=== PATIENT | male | born 1935 | race Caucasian/White ===

== ENCOUNTER → 2017-03-05 14:36 | Outpatient (CLI) | payer MEDICARE, BC, SELFPAY ==
[2017-03-05 16:19] LABS: Prostate Specific Ag Screen 1.2 ng/mL (0.0-4.0)
== END ==
PROVIDERS: PCP Urology; Visit Provider Urology
DX: R97.20 Elevated prostate specific antigen [PSA] (principal); Z12.5 Encounter for screening for malignant neoplasm of prostate
CPT/HCPCS: 36415; G0103

== ENCOUNTER → 2017-04-09 10:58 | Outpatient (CLI) | payer MEDICARE, BC, SELFPAY ==
--- NOTE | 2017-04-09 | XR_ITS ---
XR ribs LT min 3V w CXR1V HISTORY: ITS.REASON: LEFT POSTERIOR RIB PAIN ORDERING PHYSICIAN: Wilfred Chavez MD PATIENT AGE: 81 years COMPARISON: 05/24/2011 FINDINGS: A frontal view of the chest shows no acute finding. Multiple views of the Left ribs were obtained. Nondisplaced fracture involving the left 10th rib anteriorly. There is an old fracture of the left fourth through sixth ribs anteriorly. IMPRESSION: 1. Acute nondisplaced left 10th rib fracture. 2. Old left rib fractures
== END ==
PROVIDERS: PCP Family Medicine; Visit Provider Family Medicine
DX: R07.81 Pleurodynia (principal)
CPT/HCPCS: 71101

== ENCOUNTER → 2017-12-12 14:02 | Outpatient (CLI) | payer MEDICARE, BC, SELFPAY ==
[2017-12-12 15:11] LABS: Basophils % 0.6 % (0.1-2.0); Eosinophils # 0.2 K/mm3 (0.0-0.4); Hematocrit 50.4 % (42.0-52.0); Hemoglobin 16.4 g/dL (14.1-18.0); Lymphocytes # 2.4 K/mm3 (0.7-4.5); Lymphocytes % 36.8 K/mm3 (10-50); Mean Corpuscular HGB Conc 32.5 g/dL (31.8-35.4); Mean Corpuscular Hemoglobin 31.8 pg (27.0-31.2); Mean Corpuscular Volume 97.9 fl (80-94); Mean Platelet Volume 7.6 fl (7.4-10.4); Monocytes # 0.7 K/mm3 (0.1-1.0); Monocytes % 10.7 % (1.7-9.3); Neutrophils # 3.2 K/mm3 (1.8-7.8); Neutrophils % 48.9 % (37.0-80.0); Platelet Count 218 K/mm3 (142-424); Red Blood Count 5.15 M/mm3 (4.60-6.20); Red Cell Distribution Width 13.2 % (11.5-17.5); White Blood Count 6.5 K/mm3 (4.8-10.8)
[2017-12-12 15:18] LABS: Anion Gap 9.5 mEq/L (5-15); Blood Urea Nitrogen 21 mg/dL (7-18); Carbon Dioxide 29 mmol/L (21.0-32.0); Chloride 105 mmol/L (98-107); Creatinine,Serum 1.45 mg/dL (0.70-1.30); Estimated Glomerular Filt Rate 47 ml/min (>60); GFR (African American) 57 ML/MIN (>60); Glucose 85 mg/dL (74-106); Potassium 4.5 mmoL/L (3.5-5.1); Sodium 139 mmol/L (136-145)
[2017-12-12 15:46] LABS: INR 0.95 (0.9-1.1); Prothrombin Time 9.8 seconds (9.4-11.8)
== END ==
PROVIDERS: PCP Family Medicine; Visit Provider Otolaryngology
DX: Z01.818 Encounter for other preprocedural examination (principal); Z51.81 Encounter for therapeutic drug level monitoring
CPT/HCPCS: 36415; 80048; 85025; 85610

== ENCOUNTER → 2018-04-10 09:54 | Outpatient (CLI) | payer MEDICARE, BC, SELFPAY ==
[2018-04-10 11:28] LABS: Alanine Aminotransferase 37 U/L (12-78); Albumin Level 3.4 gm/dL (3.4-5.0); Albumin/Globulin Ratio 0.9 (1.1-1.8); Alkaline Phosphatase 97 U/L (46-116); Anion Gap 13.2 mEq/L (5-15); Aspartate Amino Transferase 24 U/L (15-37); Bilirubin,Total 0.8 mg/dL (0.2-1.0); Blood Urea Nitrogen 23 mg/dL (7-18); Calcium 9.1 mg/dL (8.5-10.1); Carbon Dioxide 27 mmol/L (21.0-32.0); Chloride 104 mmol/L (98-107); Chol/HDL Ratio 4.1 (1-3.5); Cholesterol 172 mg/dL (140-200); Creatinine,Serum 1.72 mg/dL (0.70-1.30); Estimated Glomerular Filt Rate 38 ml/min (>60); GFR (African American) 47 ML/MIN (>60); Globulin 3.6 gm/dl (1.3-3.2); Glucose 92 mg/dL (74-106); HDL Cholesterol 42 mg/dL (27-67); LDL Cholesterol 106 mg/dL (0-130); Potassium 4.2 mmoL/L (3.5-5.1); Sodium 140 mmol/L (136-145); Triglycerides 120 mg/dL (30-200); VLDL Cholesterol 24 mg/dL (0-40)
== END ==
PROVIDERS: Visit Provider Family Medicine
DX: E78.5 Hyperlipidemia, unspecified (principal); I10 Essential (primary) hypertension
CPT/HCPCS: 36415; 80053; 80061

== ENCOUNTER → 2018-12-08 13:49 | Outpatient (CLI) | payer MEDICARE, BC, SELFPAY ==
--- NOTE | 2018-12-08 13:57 | XR_ITS ---
PROCEDURE: XR LUMBAR SPINE MIN 4V CLINICAL INDICATION: LOW BACK PAIN Recent injury with low back pain COMPARISON: No exams were available for comparison FINDINGS: There is mild wedging of L1 with loss of height anteriorly of approximately 15-20 percent. No obvious retropulsion. There is also minimal loss of height anteriorly of L3 and L4 age indeterminate. There is normal alignment. Mild degenerative disc disease with minimal endplate hypertrophic changes are present at L1-L2 and L3-L4. There is mild amount of retained colonic feces. Vascular calcification noted likely of the left renal artery IMPRESSION: Mild wedging of, L1, L3, and L4 age indeterminate. Consider CT or MRI for further evaluation. Dictated by: Praveen Escalera MD 12/08/2018 15:01 Electronically signed by Praveen Escalera MD in [place] 12/08/2018 15:01
== END ==
PROVIDERS: PCP Family Medicine; Visit Provider Family Medicine
DX: M54.5 Low back pain (principal)
CPT/HCPCS: 72110

== ENCOUNTER → 2018-12-22 15:03 | Outpatient (CLI) | payer MEDICARE, BC, SELFPAY ==
--- NOTE | 2018-12-22 15:10 | CT_ITS ---
PROCEDURE: CT THORACIC SPINE WO CON CLINICAL HISTORY: ACUTE MIDLINE THORACIC PAIN COMPARISON: XR LUMBAR SPINE MIN 4V from 12/08/2018 TECHNIQUE: Axial images obtained with sagittal and coronal reformats. All CT scans at the facility use one or more dose reduction, viz: automated exposure control, ma/kV adjustment per patient size (including targeted exams where dose is matched to indication, i.e. head), or iterative reconstruction technique. FINDINGS: There is normal alignment. There is mild wedging involving the T10 vertebral body with loss of height anteriorly of approximately 10 percent. There is slight increased soft tissue density anteriorly at the T9-T10 level. There is slight wedging also of the T1 vertebral body anteriorly with osteophyte at the anterior superior aspect of T1 suggesting that this is old. No lytic or blastic changes are evident. There is mild multilevel degenerative disc disease. An additional nodule projects off the lateral aspect of the right kidney at 13 mm. Atelectatic changes are present in the lung bases. Incidental note is made of a 5.2 by 4 cm left renal cyst. Nonobstructing 3 mm stone is present in the lower pole of the right kidney. There is a hyperdense nodule projecting off the lower pole of the right kidney posteriorly measuring 18 mm. This is indeterminate. Incidental note made coronary artery calcifications and aortic valvular calcifications. IMPRESSION: 1. Mild wedging of the T10 vertebral body which may be acute without obvious retropulsion. 2. Mild wedging of T1 which may be old. 3. Multilevel degenerative changes. 4. Indeterminate right renal nodules. Suggest ultrasound initially for further evaluation to determine cystic or solid nature. There is a 5 cm left renal cyst. Dictated by: Praveen Escalera MD 12/23/2018 15:10 Electronically signed by Praveen Escalera MD in [place] 12/23/2018 15:10
--- NOTE | 2018-12-22 15:10 | CT_ITS ---
PROCEDURE: CT LUMBAR SPINE WO CON CLINICAL HISTORY: LBP Low back pain, fall with injury and pain COMPARISON: XR LUMBAR SPINE MIN 4V from 12/08/2018 CT THORACIC SPINE WO CON from 12/22/2018 TECHNIQUE: Axial images obtained with sagittal and coronal reformats. All CT scans at the facility use one or more dose reduction, viz: automated exposure control, ma/kV adjustment per patient size (including targeted exams where dose is matched to indication, i.e. head), or iterative reconstruction technique. FINDINGS: There is normal alignment. There is mild acute wedging of L1 with loss of height anteriorly of approximately 20 percent without retropulsion. L1-L2 has an unremarkable appearance. L2-L3: Mild bulging disc. There is a minimal acute wedge compression changes involving the superior endplate of L3 with loss of height of less than 10 percent. No retropulsion. L3-L4: Mild concentric bulging disc. There is minimal acute wedge compression changes involving the superior and central endplate of L4 with loss of height centrally of approximately 15 percent. No retropulsion. L4-5: Bulging disc. Mild bilateral foraminal narrowing L5-S1: Bulging disc with facet hypertrophic change and mild bilateral foraminal narrowing There is an and indeterminate nodule projecting off the posterior aspect of the right kidney at 1.8 cm as well as the lateral aspect of the right kidney at 1.2 cm. There may be a 1.6 cm hyperdense nodule of the left kidney. Further evaluation with ultrasound suggested. There are multiple left renal cysts the largest at 5 cm. IMPRESSION: 1. Acute mild wedge compression changes of L1, L3, and L4 as detailed above. No retropulsion. 2. Bulging disc with lumbar spondylosis as detailed above. 3. Indeterminate bilateral a renal nodules for which ultrasound is suggested for further evaluation. Dictated by: Praveen Escalera MD 12/23/2018 15:17 Electronically signed by Praveen Escalera MD in [place] 12/23/2018 15:17
== END ==
PROVIDERS: PCP Family Medicine; Visit Provider Family Medicine
DX: M54.5 Low back pain (principal); M54.6 Pain in thoracic spine
CPT/HCPCS: 72128; 72131

== ENCOUNTER → 2020-01-15 16:00 | Outpatient (CLI) | payer MEDICARE, BC, SELFPAY | PROVIDERS: Visit Provider Urology | DX: R82.81 Pyuria (principal) | CPT/HCPCS: 87086; 87088; 87186 ==

== ENCOUNTER → 2021-01-16 16:29 | Outpatient (CLI) | payer MEDICARE, BC, SELFPAY | PROVIDERS: Visit Provider Urology | DX: N39.0 Urinary tract infection, site not specified (principal); B96.1 Klebsiella pneumoniae [K. pneumoniae] as the cause of diseases classified elsewhere | CPT/HCPCS: 87086; 87088; 87186 ==

== ENCOUNTER 2021-08-08 17:16 | Outpatient (CLI) | payer MEDICARE, BC, SELFPAY ==
[2021-08-08 18:10] LABS: Microscopic,Cath URINE MICROSCOPIC (MICROSCOPIC)
[2021-08-08 18:17] LABS: Appearance,Urine/Cath CLEAR (Clear); Bilirubin,Cath Negative (Negative); Blood, Urine/Cath Negative (Negative); Color,Urine/Cath YELLOW (Yellow); Glucose,Urine/Cath (UA) Negative (Negative); Ketones,Urine/Cath Negative (Negative); Leukocyte Esterase,Cath Negative (Negative); Nitrate,Cath Negative (Negative); Protein,Urine/Cath Negative (Negative); Specific Gravity, Urine/Cath 1.015 (1.005-1.030); Urobilinogen,Cath 0.2 EU/dl (0.2)
== END 2021-08-08 18:24 | disposition home or self-care (01) ==
PROVIDERS: PCP Family Medicine; Visit Provider Family Medicine
DX: Z46.6 Encounter for fitting and adjustment of urinary device (principal)
CPT/HCPCS: 81001; G0463

== ENCOUNTER 2021-08-08 22:55 | Inpatient (IN) | payer MEDICARE, BC, SELFPAY ==
[2021-08-08 22:57] VITALS: BP 132/73; PULSE 70; RESP 18; TEMP 37.2; O2SAT 98; BMI 25.0
[2021-08-09] VITALS (10 sets, daily range): BP systolic 118–151; BP diastolic 62–79; PULSE 55–75; RESP 16–20; TEMP 36.4–36.9; O2SAT 92–99; BMI 24.5
--- NOTE | 2021-08-09 | XR_ITS ---
PROCEDURE INFORMATION: Exam: XR Pelvis Exam date and time: 08/09/2021 12:14 AM Age: 86 years old Clinical indication: Injury or trauma; Fall; Blunt trauma (contusions or hematomas); Does not apply; Pelvic region TECHNIQUE: Imaging protocol: XR pelvis. Views: 1 or 2 view. COMPARISON: CT LUMBAR SPINE WO CON 12/22/2018 3:25 PM FINDINGS: Bones/joints: There is no evidence of disruption of the pelvic ring. There is mild bilateral hip arthropathy, unchanged from prior CT topogram in 2019. Minimal sacroiliac degenerative change noted. Mild lower lumbar degenerative disc disease. Soft tissues: Unremarkable. IMPRESSION: No acute abnormality identified.
--- NOTE | 2021-08-09 | XR_ITS ---
PROCEDURE INFORMATION: Exam: XR Chest Exam date and time: 08/09/2021 12:06 AM Age: 86 years old Clinical indication: Pain and injury or trauma; Fall; Blunt trauma (contusions or hematomas); Sternal or substernal pain; Additional info: Chest pain TECHNIQUE: Imaging protocol: XR of the chest. Views: 2 views. COMPARISON: CR [id number] XR ribs LT min 3V w CXR1V 04/09/2017 11:43 AM FINDINGS: Lungs: Unremarkable. No consolidation. Pleural spaces: Unremarkable. No pleural effusion. No pneumothorax. Heart/Mediastinum: Unremarkable. No cardiomegaly. Vasculature: Mildly tortuous aorta. Bones/joints: Wedge deformity at T10 has been previously described. IMPRESSION: No acute cardiopulmonary abnormality.
--- NOTE | 2021-08-09 | CT_ITS ---
PROCEDURE INFORMATION: Exam: CT Cervical Spine Without Contrast Exam date and time: 08/09/2021 12:26 AM Age: 86 years old Clinical indication: Injury or trauma; Fall; Blunt trauma TECHNIQUE: Imaging protocol: Computed tomography images of the cervical spine without contrast. Radiation optimization: All CT scans at this facility use at least one of these dose optimization techniques: automated exposure control; mA and/or kV adjustment per patient size (includes targeted exams where dose is matched to clinical indication); or iterative reconstruction. COMPARISON: CT THORACIC SPINE WO CON 12/22/2018 3:28 PM FINDINGS: Limitations: Patient motion. Bones/joints: Nonspecific straightening. Mild retrolisthesis of C2 on C3. Grade 1 anterolisthesis C4 on C5 and trace retrolisthesis C6 on C7. Fusion across C5-C6. Mild degenerative change about the dens. Mild to moderate prevertebral osteophytosis. There are bilateral facet joint degenerative changes. No acute cervical spine fracture. Discs/Spinal canal/Neural foramina: No definite high-grade central canal stenosis. Scattered cervical foraminal stenoses. Lungs: Lung apices are normal. Pleural spaces: No visible pneumothorax. Vasculature: Vascular calcification. Soft tissues: Unremarkable. IMPRESSION: No acute cervical spine fracture.
--- NOTE | 2021-08-09 | CT_ITS ---
PROCEDURE INFORMATION: Exam: CT Head Without Contrast Exam date and time: 08/09/2021 12:26 AM Age: 86 years old Clinical indication: Injury or trauma; Fall; Blunt trauma (contusions or hematomas) TECHNIQUE: Imaging protocol: Computed tomography of the head without contrast. Radiation optimization: All CT scans at this facility use at least one of these dose optimization techniques: automated exposure control; mA and/or kV adjustment per patient size (includes targeted exams where dose is matched to clinical indication); or iterative reconstruction. COMPARISON: No relevant prior studies available. FINDINGS: Limitations: Patient motion. Brain: Age-related volume loss. Decreased attenuation of the supratentorial white matter is likely secondary to chronic microvascular ischemia. No definite acute intracranial hemorrhage. No midline shift or intracranial mass effect. Cerebral ventricles: Ventriculomegaly is commensurate for degree of volume loss. Paranasal sinuses: Visualized sinuses are unremarkable. No fluid levels. Mastoid air cells: Mild partial opacification of the right mastoid air cells. Bones/joints: No definite acute calvarial fracture. Soft tissues: Unremarkable. IMPRESSION: 1. Motion limited examination. 2. No definite acute intracranial abnormality.
[2021-08-09 00:30] LABS: Basophils # 0.1 K/mm3 (0-0.2); Basophils % 1.2 % (0.1-2.0); Eosinophils # 0.2 K/mm3 (0.0-0.4); Eosinophils % 2.6 % (0.1-12.0); Hematocrit 45.6 % (42.0-52.0); Hemoglobin 14.8 g/dL (14.1-18.0); Lymphocytes # 2.1 K/mm3 (0.7-4.5); Lymphocytes % 22.9 % (10-50); Mean Corpuscular HGB Conc 32.6 g/dL (31.8-35.4); Mean Corpuscular Hemoglobin 31.7 pg (27.0-31.2); Mean Corpuscular Volume 97.5 fl (80-94); Mean Platelet Volume 7.9 fl (7.4-10.4); Monocytes # 0.9 K/mm3 (0.1-1.0); Monocytes % 9.7 % (1.7-9.3); Neutrophils # 5.8 K/mm3 (1.8-7.8); Neutrophils % 63.5 % (37.0-80.0); Platelet Count 260 K/mm3 (142-424); Red Blood Count 4.68 M/mm3 (4.60-6.20); Red Cell Distribution Width 14.6 % (11.5-17.5); White Blood Count 9.2 K/mm3 (4.8-10.8)
[2021-08-09 00:35] LABS: Alanine Aminotransferase 21 U/L (12-78); Albumin Level 4.1 g/dl (3.5-5.0); Alkaline Phosphatase 83 U/L (38-126); Anion Gap 11.7 mEq/L (5-15); Aspartate Amino Transferase 39 U/L (17-59); Bilirubin,Indirect 0.7 mg/dL (0.0-0.9); Bilirubin,Total 0.7 mg/dl (0.2-1.3); Bilirubin,Unconjugated 0.7 mg/dL (0.0-1.1); Blood Urea Nitrogen 68 mg/dl (9-20); Calcium 10.8 mg/dl (8.4-10.2); Carbon Dioxide 35 mmol/L (22.0-30.0); Chloride 92 mmol/L (98-107); Creatinine Clearance Estimated 13 mL/min (50-200); Estimated Glomerular Filt Rate 13 ml/min (>60); GFR (African American) 16 ML/MIN (>60); Glucose 102 mg/dl (74-100); Sodium 136 mmol/L (136-145); Total Protein,Serum 7.8 g/dl (6.3-8.2)
[2021-08-09 00:37] LABS: Potassium 2.7 mmoL/L (3.5-5.1)
--- NOTE | 2021-08-09 00:37 | PC.NURSE ---
lab called and reported critical lab values potassium 2.7 creatinine 4.40 repeated and verified and notified MD No new orders at this time
[2021-08-09 00:38] LABS: Acetone, Serum (Rapid) None Detected (None Detect)
[2021-08-09 00:49] LABS: Troponin I 0.05 ng/ml (0.00-0.034)
--- NOTE | 2021-08-09 00:56 | HMH.EDAMS ---
ED Disposition Clinical Impression: MERE (acute kidney injury), Hypokalemia Altered mental status Qualifiers: Altered mental status type: unspecified Qualified Code(s): R41.82 - Altered mental status, unspecified Disposition: Admitted as Observation Condition on Discharge: Good - Critical Care Critical Care Time: No Attestation: On 08/08/21, the high probability of a clinically significant, sudden or life threatening deterioration of the following system(s) required my full and direct attention, intervention and personal management. The time I documented below is in addition to time spent performing reported procedures but includes the following listed in this critical care notation. Medical Decision Making - Medical Records Medical records reviewed: Yes: I reviewed the patient's medical records. - Alex Inquiry Pt receiving controlled substance: No Vital Signs: 08/08/21 22:57 08/09/21 02:08 Temperature 99 F 97.6 F Temperature Source Oral Oral Pulse Rate 75 Pulse Rate [Left Radial] 70 Respiratory Rate 18 16 Blood Pressure 151/79 H Blood Pressure [Right Arm] 132/73 Blood Pressure Mean [Right Arm] 92 Blood Pressure Source Automatic Cuff Blood Pressure Source [Right Arm] Automatic Cuff Blood Pressure Position [Right Arm] Sitting 02 Sat by Pulse Oximetry 98 Oxygen Delivery Method Room Air Room Air - Lab Data Lab results reviewed: Yes: I reviewed the patient's lab results. Lab Results 08/09/21 00:15: WBC 9.2, RBC 4.68, Hgb 14.8, Hct 45.6, MCV 97.5 H, MCH 31.7 H, MCHC 32.6, RDW 14.6, Plt Count 260, MPV 7.9, Neut % (Auto) 63.5, Lymph % (Auto) 22.9, Taliaferro % (Auto) 9.7 H, Eos % (Auto) 2.6, Baso % (Auto) 1.2, Neut # (Auto) 5.8, Lymph # (Auto) 2.1, Taliaferro # (Auto) 0.9, Eos # (Auto) 0.2, Baso # (Auto) 0.1 08/09/21 00:15: Sodium 136, Potassium 2.7 L*, Chloride 92 L, Carbon Dioxide 35 H, Anion Gap 11.7, BUN 68 H, Creatinine 4.40 H, Estimated Creat Clear 13, Estimated GFR 13 L*, Est GFR ( Amer) 16 L*, Glucose 102 H, Calcium 10.8 H, Total Bilirubin 0.7, Direct Bilirubin 0.0, Conjugated Bilirubin 0.0, Indirect Bilirubin 0.7, Unconjugated Bilirubin 0.7, AST 39, ALT 21, Alkaline Phosphatase 83, Troponin I 0.05 H, C-Reactive Protein 15.0 H, Total Protein 7.8, Albumin 4.1, Acetone Level None detected 08/09/21 00:15: Hemoglobin A1c 5.6 08/09/21 00:15: ESR 31 H 08/09/21 00:15: Lactate 1.0 08/09/21 00:15: Total Creatine Kinase 106, Troponin I 0.05 H 08/09/21 00:15: TSH 2.07, Thyroxine (T4) 5.6 08/09/21 01:09: SARS-CoV-2 (PCR) Not detected, Influenza A Untype (PCR) Not detected, Influenza Type B (PCR) Not detected Result diagrams: 08/09/21 00:15 08/09/21 00:15 Orders (Tests/Meds): ED MEDICATIONS Generic Name Dose Route Start Last Admin Trade Name Freq PRN Reason Stop Dose Admin Sodium Chloride 1,000 mls @ 999 mls/hr 08/09/21 01:15 08/09/21 01:03 Sod Chlor 0.9% 1000ml Bag IV 08/09/21 02:15 999 mls/hr .Q1H1M YOMAIRA Administration Discontinued Medications Generic Name Dose Route Start Last Admin Trade Name Freq PRN Reason Stop Dose Admin Potassium Chloride 40 meq 08/09/21 01:39 08/09/21 01:54 Potassium Chloride 20meq Tab PO 08/09/21 01:40 40 meq ONCE ONE Administration ORDERS Category Date Time Status Free Valproic Acid (Depakote) Routine Lab 08/09/21 00:15 Received Troponin I Q3H Lab 08/09/21 06:00 Ordered Blood Culture Stat Micro 08/09/21 00:15 Received - Radiology Data #1 Image(s): Chest, Pelvis Image Reviewed: Yes I have reviewed radiologist's interpretation Preliminary Findings: No Fracture Seen - CT Data CT Scan: Head, C-Spine Time Received: 02:[address] Reviewed: Yes: I have viewed the radiologist's interpretation Preliminary Findings: Abnormal - ECG Data Tracing #1 Normal Sinus Rhythm: Yes Ischemic changes: non-specific ST-T wave changes Conduction abnormalities present: RBBB - Physician Consults Physician Consulted: mariely Sarah
--- NOTE | 2021-08-09 01:01 | PC.NURSE ---
MD AWARE THAT FAMILY FEELS THEY CAN NO LONGER CARE FOR PATIENT AT HOME.
--- NOTE | 2021-08-09 01:06 | ECG_ITS ---
APPROVED REPORT Exam: Resting ECG HR:68 bpm ECG Measurements Heart Rate 68 AXES NJ 191 P 60 QRSd 141 QRS 62 QT 455 T 71 QTc 472 Conclusion SINUS RHYTHM RIGHT BUNDLE BRANCH BLOCK [120+ ms QRS DURATION, UPRIGHT V1, 40+ ms S IN I/aVL/V4/V5/V6] ABNORMAL ECG UNCONFIRMED REPORT Electronically signed by : Sumeet Martins MD 08/09/2021 16:53:43
[2021-08-09 01:19] LABS: Coronavirus 19, PCR Not Detected (NotDetected); Influenza A, PCR Not Detected (NotDetected); Influenza B, PCR Not Detected (NotDetected)
[2021-08-09 01:22] LABS: Erythrocyte Sedimentation Rate 31 mm/hr (0-20)
[2021-08-09 01:46] LABS: Creatine Kinase 106 U/L (55-170)
[2021-08-09 01:59] LABS: Troponin I 0.05 ng/ml (0.00-0.034)
[2021-08-09 02:09] LABS: T4 (Thyroxine) 5.6 ug/dl (5.53-11.0)
[2021-08-09 02:22] LABS: Thyroid Stimulating Hormone 2.07 uIU/mL (0.465-4.68)
--- NOTE | 2021-08-09 02:24 | PC.NURSE ---
patient up to floor via wheelchair @ this time.
[2021-08-09 02:25] LABS: Hemoglobin A1C 5.6 % (4.0-6.0)
[2021-08-09 06:41] LABS: Chloride 97 mmol/L (98-107); Sodium 138 mmol/L (136-145)
[2021-08-09 06:42] LABS: Basophils # 0.1 K/mm3 (0-0.2); Basophils % 0.5 % (0.1-2.0); Eosinophils # 0.3 K/mm3 (0.0-0.4); Eosinophils % 2.9 % (0.1-12.0); Hematocrit 40.8 % (42.0-52.0); Hemoglobin 13.9 g/dL (14.1-18.0); Lymphocytes # 2.5 K/mm3 (0.7-4.5); Lymphocytes % 28.8 % (10-50); Mean Corpuscular HGB Conc 34.1 g/dL (31.8-35.4); Mean Corpuscular Hemoglobin 32.4 pg (27.0-31.2); Mean Platelet Volume 8.1 fl (7.4-10.4); Monocytes # 0.8 K/mm3 (0.1-1.0); Monocytes % 9.2 % (1.7-9.3); Neutrophils # 5.2 K/mm3 (1.8-7.8); Neutrophils % 58.7 % (37.0-80.0); Platelet Count 253 K/mm3 (142-424); Red Blood Count 4.29 M/mm3 (4.60-6.20); Red Cell Distribution Width 14.7 % (11.5-17.5); White Blood Count 8.8 K/mm3 (4.8-10.8)
[2021-08-09 06:44] LABS: Anion Gap 11.5 mEq/L (5-15); Blood Urea Nitrogen 65 mg/dl (9-20); Calcium 10.4 mg/dl (8.4-10.2); Carbon Dioxide 32 mmol/L (22.0-30.0); Creatinine Clearance Estimated 14 mL/min (50-200); Estimated Glomerular Filt Rate 14 ml/min (>60); GFR (African American) 16 ML/MIN (>60); Glucose 101 mg/dl (74-100); Magnesium 2.3 mg/dl (1.6-2.3)
[2021-08-09 06:57] LABS: Potassium 2.5 mmoL/L (3.5-5.1)
--- NOTE | 2021-08-09 07:10 | HMH.PHAVTE ---
[facility] VTE Monitoring - Patient Demographics Admission date: 08/09/21 Report Date: 08/09/21 Time: 07:10 Allergies/Adverse Reactions: Patient Allergies naproxen Allergy (Mild, Verified 06/21/21 13:10) diarrhea Sulfa (Sulfonamide Antibiotics) Allergy (Mild, Verified 06/21/21 13:10) CEPHALEXIN Allergy (Unknown, Uncoded 01/16/21 13:54) UNKNOWN CYCLOBENZAPRINE Allergy (Unknown, Uncoded 01/16/21 13:54) UNKNOWN REACTION From AKANKSHA Allergy (Unknown, Uncoded 01/16/21 13:54) UNKNOWN From BACTRIM Allergy (Unknown, Uncoded 01/16/21 13:54) UNKNOWN From CLARITIN Allergy (Unknown, Uncoded 01/16/21 13:54) UNKNOWN From HISTA-VENT DA Allergy (Unknown, Uncoded 01/16/21 13:54) UNKNOWN From NEOSPORIN Allergy (Unknown, Uncoded 01/16/21 13:54) REDNESS From STAHIST Allergy (Unknown, Uncoded 01/16/21 13:54) UNKNOWN From VANCENASE Allergy (Unknown, Uncoded 01/16/21 13:54) UNKNOWN CODEINE Adverse Reaction (Unknown, Uncoded 01/16/21 13:54) UNKNOWN Height: 1.73 m Weight: 73.527 kg Patient Problems: Current Active Problems Altered mental status (Acute) MERE (acute kidney injury) (Acute) Hypokalemia (Acute) - VTE Risk Labs: VTE Related Lab Results Hgb 14.8 g/dL (14.1-18.0) 08/09/21 00:15 Hct 45.6 % (42.0-52.0) 08/09/21 00:15 Plt Count 260 K/mm3 (142-424) 08/09/21 00:15 BUN 65 mg/dl (9-20) H 08/09/21 06:00 Creatinine 4.20 mg/dl (0.66-1.25) H 08/09/21 06:00 Estimated Creat Clear 14 mL/min (50-200) 08/09/21 06:00 VTE Score: 1 VTE Risk Level: Very Low Risk - Prophylaxis VTE Prophylaxis Ordered?: Yes Types of VTE Prophylaxis: TEDS Knee High Location of Applied Device: Bilateral Lower Extremeties
[2021-08-09 07:17] LABS: Troponin I 0.05 ng/ml (0.00-0.034)
--- NOTE | 2021-08-09 07:34 | PC.NURSE ---
Notified Dr. Robbins of Critical lab of K 2.[address] Robbins said to give 1 run of potassium and and 20meq tid. Then he would address the crat. on rounds today.
--- NOTE | 2021-08-09 07:37 | HMH.PHAINT ---
MEDICATION RECONCILIATION COMPLETED ON PATIENT USING EXTERNAL FILL HISTORY FROM PHARMACY. -HOLA MCKAY, PATRICIOD
--- NOTE | 2021-08-09 08:08 | HMH.HP ---
*Admission Date: 08/09/21 <Karolina Mendez - 08/09/21 08:25> *Chief complaint: Altered mental status; fall <Karolina Mendez - 08/09/21 08:25> *History of present illness: Mr. Tan is an 86-year-old male with a history of hypertension, hyperlipidemia, bipolar disorder, and dementia who was brought to [facility] emergency room by family after a fall at home. His son is present and contributes to his history. He states he was incontinent of urine yesterday for the first time. He has had difficulty with walking. He has continued to live at home with both sons closely monitoring. They do have TV monitors for additional observation. He was seen in the office of [facility] yesterday accompanied by his son with concerns about changes in his mental status. Sons have noticed a decline in the last couple of weeks. They reported slurred speech which has since resolved. He seemed to be weaker and more unsteady on his feet. The family iis also concerned about his worsening memory. Due to debilitation they are actively seeking placement for long-term care and have discussed admission with administration at [facility]. Exam at [facility] showed clear lungs; oropharyngeal with slightly dry mucous membranes,. Heart was regular. Lower legs showed no edema with this visit. Neuro exam showed no focal motor deficits. Gait was noted to be slow and shuffling. He was ambulating with a straight cane and with cues from his son. With evaluation in the emergency room CT of the cervical spine revealed no acute cervical spine fracture . CT of the head without contrast revealed No definite acute intracranial abnormality. X-ray of the pelvis revealed no acute abnormality. Laboratory data showed hypokalemia with a potassium of 2.7 and renal deficits with a BUN of 68, creatinine of 4.40 and GFR of 13. Troponin I was 0.05x3. TSH was normal at 2.07. Chest x-ray showed no acute cardiopulmonary disease. He received a liter of IV fluids and 40 mill equivalents of KCl p.o. He was then admitted for hydration with acute renal failure. This a.m. patient denies chest pain and shortness of breath. His nurse stated that he ate half of his breakfast. He has been confused throughout the night. He does answer some questions correctly but is focused on his cat who bit him on the arm last week. Potassium remains low at 2.5. BUN is 65 and creatinine is 4.2. <Mendez,Karolina 08/09/21 08:44> [facility] History Medical History: Reports:: Cancer (skin), Dementia, Hyperlipidemia, Hypertension, Renal Insufficiency, Urinary Tract Infection Denies:: Diabetes Mellitus Type 1, Diabetes Mellitus Type 2, MRSA, Seizures <AndreaKarolina 08/09/21 08:25> *Have you ever received a pneumonia vaccine?: Yes <Karolina Mendez 08/09/21 08:25> *Have you received a flu vaccine this season?: Yes <AndreaKarolina 08/09/21 08:25> Other Medical History: Reports: Arthritis, Cataracts, Sinus Problems. Denies: Blood Transfusion Reaction <Karolina Mendez 08/09/21 08:25> Laterality Cases: Bilateral: Cataract, Other <AndreaKarolina 08/09/21 08:25> Other Surgeries: Yes: Cancer Surgery, Colonoscopy, Other <Karolina Mendez 08/09/21 08:25> Amputation: No <Karolina Mendez 08/09/21 08:25> Fractures: Yes (ribs, arm) <AndreaKarolina 08/09/21 08:25> - *Social History Last grade of school completed: High school graduate <Karolina Mendez 08/09/21 08:25> Smoking Status: Never smoker <Karolina Mendez 08/09/21 08:25> Alcohol Intake: never <Karolina Mendez 08/09/21 08:25> Substance Use Type: denies use <Karolina Mendez 08/09/21 08:25> *Occupational Status:: retired <Karolina Mendez 08/09/21 08:25> Housing: house <Karolina Mendez 08/09/21 08:25> Household Members: none <Karolina Mendez 08/09/21 08:25> *Travel in the last 8 weeks: None <Karolina Mendez 08/09/21 08:25> - Psychiatric History Pschychiatric History:: Reports:: Bipolar Disorder <Karolina Mendez -
--- NOTE | 2021-08-09 08:20 | SW/DCPLANNER ---
Addendum entered by [facility] 08/11/21 12:08: The plan for this patient is to discharge to [facility] tomorrow. Patient's son and Melinda alvarez/ [facility] concur with this plan. Patient will require a COVID swab prior to discharge. Addendum entered by [facility] 08/10/21 15:41: [facility] can [facility] this patient once medically stable for discharge. I have called and updates patient's son. Addendum entered by [facility] 08/10/21 13:54: [facility] has denied this patient. Patient information has been faxed to Melinda alvarez/ [facility] and Goldie alvarez/ [facility]. Addendum entered by [facility] 08/09/21 15:39: I am currently waiting to hear back from [facility] regarding referral on this patient. Original Note: I spoke with this patient's son (Wilman) regarding plans once medically stable for discharge. Wilman expressed an interest in placement, potentially being oysterman placement. Wilman stated that he has spoke with his brother regarding situation and both are interested in any [facility] facility. [facility] not [facility] any [facility] beds at this time. [facility] stated that she does have a male bed open: patient information will be faxed to [facility] this AM. I will also follow up with Inés at [facility]. I will continue to follow up with patient's family regarding discharge plans. Discharge date is unknown at this time.
--- NOTE | 2021-08-09 10:20 | HMH.OTEV ---
OT Inpatient Evaluation Rehab OT IP Evaluation Start: 08/09/21 08:31 Freq: ONCE Status: Complete Protocol: Document 08/09/21 10:11 JOVAN (Rec: 08/09/21 10:20 JOVAN [id number]) Rehab OT IP Assessment Subjective History Mr. Tan is an 86-year-old male with a history of hypertension, hyperlipidemia, bipolar disorder, and dementia who was brought to [facility] emergency room by family after a fall at home. His son is present and contributes to his history. He states he was incontinent of urine yesterday for the first time. He has had difficulty with walking. He has continued to live at home with both sons closely monitoring. They do have TV monitors for additional observation. He was seen in the office of [facility] yesterday accompanied by his son with concerns about changes in his mental status. Sons have noticed a decline in the last couple of weeks. They reported slurred speech which has since resolved. He seemed to be weaker and more unsteady on his feet. The family iis also concerned about his worsening memory. Due to debilitation they are actively seeking placement for long-term care and have discussed admission with administration at [facility]. Exam at [facility] showed clear lungs; oropharyngeal with slightly dry mucous membranes, . Heart was regular. Lower legs showed no edema with this visit. Neuro exam showed no focal motor deficits. Gait was noted to be slow and shuffling. He was ambulating
--- NOTE | 2021-08-09 12:02 | HMH.PTEV ---
Physical Therapy Evaluation Rehab PT IP Evaluation Start: 08/09/21 08:31 Freq: ONCE Status: Active Protocol: Document 08/09/21 11:49 BLANK (Rec: 08/09/21 12:01 BLANK [id number]) Subjective/History History History The pt is an 86 y/o male with a history of hypertension, hyperlipidemia, bipolar disorder, and dementia who was brought to due to a fall at home and noted decline in mental/ physical function by son. Son was present in room during initial evaluation and reports the pt lives alone in a single story home and uses a cane to ambulate. Son reports he lives 11 miles away and comes to check on him daily and brings him meals but is concerned he will not be able to proivde the care he needs currently. Medical History: Cancer (skin) , Dementia, Hyperlipidemia, Hypertension, Renal Insufficiency, Urinary Tract Infection Subjective Subjective Pt reports no issues/concerns. Noted decline in cognitive function although oriented to person and place. Rehab PT IP Eval Objective Appearance Patient Behavior Cooperative Patient Orientation Person,Place,Name,Birthday Difficulty following instructions mild Speech Pattern Patient Baseline Ambulation Patient Able to Ambulate Yes Ambulation Observation IP General Gait Pattern Observation No Deviations/Normal Ambulation Distance (feet) 200 Ambulation Assistive Device Rolling Walker Ambulation Ability Contact Guard/Hand Hold Balance Ability to Arise Able, w/o using arms Sitting Balance Steady, safe Standing Balance Narrow stance w/o support Dynamic Sitting Balance Ability Normal Dynamic Standing Balance Ability Normal Transfers Bed Transfer Ability Contact Guard/Hand Hold Sit to Stand Bed Transfer Ability Contact Guard/Hand Hold Rehab PT IP prob,goals,plan Problems Date of Evaluation: 08/09/21 PT IP Problems Bed Mobility,Transfers,Gait, Balance,Self care,Safety
--- NOTE | 2021-08-09 17:53 | PC.NURSE ---
Patient very confused and restless during shift. Patient trying multiple times to get out of bed, sons in room at bedside stated patient gets combative. Dr. Robbins informed and some home medications resumed. Patient's sons stated patient was still agitated and restless and requested Dr. Robbins to be paged again and medication to be ordered as the sons cannot spend the night. Dr. Robbins made aware and he stated he would come by after the office closed to assess patient. Potassium replaced, vitals stable and patient remained on room air.
[2021-08-09 18:39] LABS: Chloride 99 mmol/L (98-107)
[2021-08-09 18:40] LABS: Sodium 136 mmol/L (136-145)
--- NOTE | 2021-08-09 18:42 | HMH.ACPN2 ---
Internal Medicine - PN: Subj *Date: 08/09/21 *Time: 18:42 Interval history: The patient is somewhat combative and keeps trying to get out of bed. We have ordered his hydroxyzine 25 mg to be given now. I am adding 5 mg of aripiprazole for total of 15 mg a day. He did receive the 10 mg dose earlier and I will give 5 mg now. Exam Vital signs and Labs for Last 24 Hours: Temp Pulse Resp BP Pulse Ox 98.0 F 64 17 122/62 92 L 08/09/21 14:54 08/09/21 14:54 08/09/21 14:54 08/09/21 14:54 08/09/21 14:54 Laboratory Results - last 24 hr 08/09/21 00:15: WBC 9.2, RBC 4.68, Hgb 14.8, Hct 45.6, MCV 97.5 H, MCH 31.7 H, MCHC 32.6, RDW 14.6, Plt Count 260, MPV 7.9, Neut % (Auto) 63.5, Lymph % (Auto) 22.9, Oldham % (Auto) 9.7 H, Eos % (Auto) 2.6, Baso % (Auto) 1.2, Neut # (Auto) 5.8, Lymph # (Auto) 2.1, Oldham # (Auto) 0.9, Eos # (Auto) 0.2, Baso # (Auto) 0.1 08/09/21 00:15: Sodium 136, Potassium 2.7 L*, Chloride 92 L, Carbon Dioxide 35 H, Anion Gap 11.7, BUN 68 H, Creatinine 4.40 H, Estimated Creat Clear 13, Estimated GFR 13 L*, Est GFR ( Amer) 16 L*, Glucose 102 H, Calcium 10.8 H, Total Bilirubin 0.7, Direct Bilirubin 0.0, Conjugated Bilirubin 0.0, Indirect Bilirubin 0.7, Unconjugated Bilirubin 0.7, AST 39, ALT 21, Alkaline Phosphatase 83, Troponin I 0.05 H, C-Reactive Protein 15.0 H, Total Protein 7.8, Albumin 4.1, Acetone Level None detected 08/09/21 00:15: Hemoglobin A1c 5.6 08/09/21 00:15: ESR 31 H 08/09/21 00:15: Lactate 1.0 08/09/21 00:15: Total Creatine Kinase 106, Troponin I 0.05 H 08/09/21 00:15: TSH 2.07, Thyroxine (T4) 5.6 08/09/21 01:09: SARS-CoV-2 (PCR) Not detected, Influenza A Untype (PCR) Not detected, Influenza Type B (PCR) Not detected 08/09/21 06:00: Troponin I 0.05 H 08/09/21 06:00: WBC 8.8, RBC 4.29 L, Hgb 13.9 L, Hct 40.8 L, MCV 95.0 H, MCH 32.4 H, MCHC 34.1, RDW 14.7, Plt Count 253, MPV 8.1, Neut % (Auto) 58.7, Lymph % (Auto) 28.8, Oldham % (Auto) 9.2, Eos % (Auto) 2.9, Baso % (Auto) 0.5, Neut # (Auto) 5.2, Lymph # (Auto) 2.5, Oldham # (Auto) 0.8, Eos # (Auto) 0.3, Baso # (Auto) 0.1 08/09/21 06:00: Sodium 138, Potassium 2.5 L*, Chloride 97 L, Carbon Dioxide 32 H, Anion Gap 11.5, BUN 65 H, Creatinine 4.20 H, Estimated Creat Clear 14, Estimated GFR 14 L*, Est GFR ( Amer) 16 L*, Glucose 101 H, Calcium 10.4 H, Magnesium 2.3 I & O for Last 24 hours: Intake & Output 08/07/21 08/08/21 08/09/21 08/10/21 11:59 11:59 11:59 11:59 Intake Total 1580 / 1580 600 / 600 Output Total 200 / 200 Balance 1380 / 1380 600 / 600 Weight 162 lb 3.105 oz Assessment and Plan (1) MERE (acute kidney injury) Status: Acute Category: Medical Code(s): N17.9 - Acute kidney failure, unspecified (2) Altered mental status Status: Acute Qualifiers: Altered mental status type: unspecified Qualified Code(s): R41.82 - Altered mental status, unspecified Category: Medical Code(s): R41.82 - Altered mental status, unspecified (3) Hypokalemia Status: Acute Category: Medical Code(s): E87.6 - Hypokalemia (4) Fall Status: Acute Category: Medical Code(s): W19.XXXA - Unspecified fall, initial encounter (5) Dementia Status: Acute Category: Medical Code(s): F03.90 - Unspecified dementia without behavioral disturbance (6) Cognitive decline Status: Acute Category: Medical Code(s): R41.89 - Other symptoms and signs involving cognitive functions and awareness (7) Physical debility Status: Acute Category: Medical Code(s): R53.81 - Other malaise - Assessment and plan all Dx Assessment and Plan for all problems:: As above. I examined the patient and spoke with his sons who are present in the room.
[2021-08-09 18:43] LABS: Blood Urea Nitrogen 56 mg/dl (9-20); Calcium 9.7 mg/dl (8.4-10.2); Carbon Dioxide 28 mmol/L (22.0-30.0); Creatinine Clearance Estimated 15 mL/min (50-200); Estimated Glomerular Filt Rate 16 ml/min (>60); GFR (African American) 19 ML/MIN (>60); Glucose 171 mg/dl (74-100)
--- NOTE | 2021-08-09 18:58 | PC.NURSE ---
Dr. Robbins notified of critical potassium 3.0. Orders already in place.
[2021-08-10] VITALS (8 sets, daily range): BP systolic 103–145; BP diastolic 55–72; PULSE 50–80; RESP 16–22; TEMP 36.1–36.7; O2SAT 93–98; BMI 24.4
--- NOTE | 2021-08-10 05:58 | PC.NURSE ---
Patient rested well throughout the shift. He woke up and attempted to get out of bed twice, wanting to go to the bathroom. Patient was not agitated or combative towards staff. Patient continues to be confused and is alert and oriented x1. Patient continues on room air without problems. Call light in place and working appropriately.
[2021-08-10 07:40] LABS: Chloride 104 mmol/L (98-107); Sodium 140 mmol/L (136-145)
[2021-08-10 07:43] LABS: Anion Gap 9.9 mEq/L (5-15); Blood Urea Nitrogen 54 mg/dl (9-20); Calcium 9.6 mg/dl (8.4-10.2); Carbon Dioxide 29 mmol/L (22.0-30.0); Creatinine Clearance Estimated 18 mL/min (50-200); Estimated Glomerular Filt Rate 19 ml/min (>60); GFR (African American) 23 ML/MIN (>60); Glucose 88 mg/dl (74-100)
[2021-08-10 07:58] LABS: Potassium 2.9 mmoL/L (3.5-5.1)
--- NOTE | 2021-08-10 08:10 | PC.NURSE ---
Dr. Chavez made aware of 2.9 potassium while rounding on patient. Patient already has potassium orders in place.
--- NOTE | 2021-08-10 08:26 | HMH.ACPN2 ---
<Shama Lim - Last Filed: 08/10/21 08:27> Internal Medicine - PN: Subj *Date: 08/10/21 *Time: 08:27 Interval history: He is eating breakfast of [employer] and Dr. Durbin with son at bedside. He has no complaint. Exam Vital signs and Labs for Last 24 Hours: Temp Pulse Resp BP Pulse Ox 98.0 F 61 21 103/55 L 93 L 08/10/21 04:00 08/10/21 04:00 08/10/21 04:00 08/10/21 04:00 08/10/21 04:00 Laboratory Results - last 24 hr 08/09/21 18:17: Sodium 136, Potassium 3.0 L, Chloride 99, Carbon Dioxide 28, Anion Gap 12.0, BUN 56 H, Creatinine 3.70 H, Estimated Creat Clear 15, Estimated GFR 16 L*, Est GFR ( Amer) 19 L*, Glucose 171 H D, Calcium 9.7 08/10/21 06:16: Sodium 140, Potassium 2.9 L*, Chloride 104, Carbon Dioxide 29, Anion Gap 9.9, BUN 54 H, Creatinine 3.20 H, Estimated Creat Clear 18, Estimated GFR 19 L*, Est GFR ( Amer) 23 L D, Glucose 88 D, Calcium 9.6 I & O for Last 24 hours: Intake & Output 08/07/21 08/08/21 08/09/21 08/10/21 11:59 11:59 11:59 11:59 Intake Total 1580 / 1580 935 / 935 Output Total 200 / 200 Balance 1380 / 1380 935 / 935 Weight 162 lb 3.105 oz 161 lb 4.8 oz - Constitutional no acute distress Comments: CAHUILLA - *Routine HEENT Exam Head: Present: normocephalic ENT: Present: mucous membranes moist - *Routine Respiratory Exam Present: CTA bilaterally. Absent: respiratory distress, rhonchi, wheezes - *Routine Cardiovascular Exam Present: RRR - *Routine Abdominal Exam Present: soft, normoactive bowel sounds. Absent: tenderness, distended, guarding, firm - *Routine Extremities Exam Present: pulses intact. Absent: edema, calf tenderness, extremity cold to touch - *Routine Neurological Exam Present: alert, moving all extremities oriented to person and place, CAHUILLA Assessment and Plan (1) MERE (acute kidney injury) Status: Acute Category: Medical Code(s): N17.9 - Acute kidney failure, unspecified (2) Altered mental status Status: Acute Qualifiers: Altered mental status type: unspecified Qualified Code(s): R41.82 - Altered mental status, unspecified Category: Medical Code(s): R41.82 - Altered mental status, unspecified (3) Hypokalemia Status: Acute Category: Medical Code(s): E87.6 - Hypokalemia (4) Fall Status: Acute Category: Medical Code(s): W19.XXXA - Unspecified fall, initial encounter (5) Dementia Status: Acute Category: Medical Code(s): F03.90 - Unspecified dementia without behavioral disturbance (6) Cognitive decline Status: Acute Category: Medical Code(s): R41.89 - Other symptoms and signs involving cognitive functions and awareness (7) Physical debility Status: Acute Category: Medical Code(s): R53.81 - Other malaise - Assessment and plan all Dx Assessment and Plan for all problems:: Potassium is improved but remains low. Renal function is slowly improving. Further per Dr. Chavez. <Wilfred Chavez - Last Filed: 08/10/21 17:44> Internal Medicine - PN: Subj *Date: 08/10/21 *Time: 17:43 Exam Vital signs and Labs for Last 24 Hours: Temp Pulse Resp BP Pulse Ox 97.9 F 53 L 22 127/70 96 08/10/21 12:00 08/10/21 12:00 08/10/21 12:00 08/10/21 12:00 08/10/21 12:00 Laboratory Results - last 24 hr 08/09/21 18:17: Sodium 136, Potassium 3.0 L, Chloride 99, Carbon Dioxide 28, Anion Gap 12.0, BUN 56 H, Creatinine 3.70 H, Estimated Creat Clear 15, Estimated GFR 16 L*, Est GFR ( Amer) 19 L*, Glucose 171 H D, Calcium 9.7 08/10/21 06:16: Sodium 140, Potassium 2.9 L*, Chloride 104, Carbon Dioxide 29, Anion Gap 9.9, BUN 54 H, Creatinine 3.20 H, Estimated Creat Clear 18, Estimated GFR 19 L*, Est GFR ( Amer) 23 L D, Glucose 88 D, Calcium 9.6 I & O for Last 24 hours: Intake & Output 08/08/21 08/09/21 08/10/21 08/11/21 11:59 11:59 11:59 11:59 Intake Total 1580 / 1580 995 / 995 Output Total 200 / 200 Balance 1380 / 1380 995 /
--- NOTE | 2021-08-10 16:37 | PC.NURSE ---
Patient up to chair for most of day. Patient still impulsive and trying to get out of bed and chair without asking for help. Bed and chair alarms utilized. VS stable and patient remained on room air. NS at 75ml/hr. Potassium replaced by iv and one dose oral as patient refused second dose. No other complaints noted.
[2021-08-11] VITALS (7 sets, daily range): BP systolic 118–161; BP diastolic 58–89; PULSE 50–80; RESP 16–21; TEMP 36.5–37; O2SAT 93–97; BMI 24.7
--- NOTE | 2021-08-11 04:15 | PC.NURSE ---
Patient is alert and oriented to self. Has rested well this shift with no c/o pain or discomfort. Patient has gotten up to go to the bathroom multiple times throughout the night, with assistance x1. Patient has not been combative or aggressive, has been pleasant. Call light within reach and working appropriately. Bed alarm is also turned on and working appropriately.
[2021-08-11 07:21] LABS: Chloride 108 mmol/L (98-107); Potassium 3.4 mmoL/L (3.5-5.1); Sodium 138 mmol/L (136-145)
[2021-08-11 07:24] LABS: Anion Gap 8.4 mEq/L (5-15); Blood Urea Nitrogen 36 mg/dl (9-20); Carbon Dioxide 25 mmol/L (22.0-30.0); Creatinine Clearance Estimated 22 mL/min (50-200); Estimated Glomerular Filt Rate 24 ml/min (>60); GFR (African American) 29 ML/MIN (>60); Glucose 94 mg/dl (74-100)
--- NOTE | 2021-08-11 08:19 | HMH.ACPN2 ---
Internal Medicine - PN: Subj *Date: 08/11/21 *Time: 08:19 Interval history: He was up in the chair some yesterday which he tolerated well. He was up several times to the bathroom overnight but otherwise rested well with no agitation or combative behavior. He is eating a little better. Exam Vital signs and Labs for Last 24 Hours: Temp Pulse Resp BP Pulse Ox 98.0 F 79 21 136/85 97 08/11/21 04:00 08/11/21 04:00 08/11/21 04:00 08/11/21 04:00 08/11/21 04:00 Laboratory Results - last 24 hr 08/11/21 06:56: Sodium 138, Potassium 3.4 L, Chloride 108 H, Carbon Dioxide 25, Anion Gap 8.4, BUN 36 H D, Creatinine 2.60 H, Estimated Creat Clear 22, Estimated GFR 24 L, Est GFR ( Amer) 29 L D, Glucose 94, Calcium 9.0 I & O for Last 24 hours: Intake & Output 08/08/21 08/09/21 08/10/21 08/11/21 11:59 11:59 11:59 11:59 Intake Total 1580 / 1580 995 / 995 720 / 720 Output Total 200 / 200 103 / 103 Balance 1380 / 1380 995 / 995 617 / 617 Weight 162 lb 3.105 oz 161 lb 4.8 oz 163 lb 8 oz Microbiology Reports for the Last 24 Hours: Microbiology 08/09/21 00:15 Blood Blood Culture - Preliminary NO GROWTH AFTER 48 HOURS 08/09/21 00:15 Blood Blood Culture - Preliminary NO GROWTH AFTER 48 HOURS Narrative: Very hard of hearing. Lungs are clear. Heart is regular. Abdomen is soft nondistended with no tenderness. Extremities no edema. Assessment and Plan (1) MERE (acute kidney injury) Status: Acute Category: Medical Code(s): N17.9 - Acute kidney failure, unspecified (2) Altered mental status Status: Acute Qualifiers: Altered mental status type: unspecified Qualified Code(s): R41.82 - Altered mental status, unspecified Category: Medical Code(s): R41.82 - Altered mental status, unspecified (3) Hypokalemia Status: Acute Category: Medical Code(s): E87.6 - Hypokalemia (4) Fall Status: Acute Category: Medical Code(s): W19.XXXA - Unspecified fall, initial encounter (5) Dementia Status: Acute Category: Medical Code(s): F03.90 - Unspecified dementia without behavioral disturbance (6) Cognitive decline Status: Acute Category: Medical Code(s): R41.89 - Other symptoms and signs involving cognitive functions and awareness (7) Physical debility Status: Acute Category: Medical Code(s): R53.81 - Other malaise - Assessment and plan all Dx Assessment and Plan for all problems:: Mental status appears to be approaching his baseline dementia. Renal function and potassium are improving but not yet normal. We will continue IV fluids. Care management is still working on final placement decisions. He may possibly be ready for discharge by tomorrow pending his follow-up labs in the morning.
--- NOTE | 2021-08-11 12:58 | ECG_ITS ---
APPROVED REPORT Exam: Resting ECG HR:69 bpm ECG Measurements Heart Rate 69 AXES SC 169 P 32 QRSd 135 QRS -6 QT 422 T 26 QTc 441 Conclusion SINUS RHYTHM RIGHT BUNDLE BRANCH BLOCK [120+ ms QRS DURATION, UPRIGHT V1, 40+ ms S IN I/aVL/V4/V5/V6] ABNORMAL ECG UNCONFIRMED REPORT Electronically signed by : Sumeet Martins MD 08/12/2021 20:18:02
[2021-08-11 14:32] LABS: Free Valproic Acid (Depakote) 32.5
--- NOTE | 2021-08-11 14:35 | PC.NURSE ---
Called [facility] to inform Dr. Chavez of critical. FELIX Burroughs given critical of free valproic acid 32.5.
--- NOTE | 2021-08-11 14:37 | PC.NURSE ---
Report received at 1330. Rounded on patient. VS stable and no acute signs of distress noted. Patient on room air and ambulated to bathroom.
--- NOTE | 2021-08-11 19:16 | PC.NURSE ---
Pt still impulsive trying to get out of bed. Patient uses bathroom each time. Bed alarm set on zone 2. VS stable and patient remains on room air. Confusion still present but seems to be back to pt baseline.
[2021-08-12] VITALS: BP 137/79; PULSE 80; PULSE 90; RESP 16; TEMP 36.9; O2SAT 94
[2021-08-12 04:00] VITALS: BP 124/69; PULSE 72; RESP 17; TEMP 36.9; O2SAT 93
--- NOTE | 2021-08-12 04:59 | PC.NURSE ---
Pt has rested throughout shift. Patient has tried to get out of bed two times with bed alarm sounding each time, pt tries to get up when incontinent. Bed linens have been changed twice this shift due to incontinence. No complaints of pain.
[2021-08-12 05:13] VITALS: BMI 24.7
[2021-08-12 08:00] VITALS: BP 140/76; PULSE 80; RESP 18; TEMP 36.7; O2SAT 95
[2021-08-12 08:19] LABS: Chloride 106 mmol/L (98-107); Potassium 3.7 mmoL/L (3.5-5.1); Sodium 140 mmol/L (136-145)
[2021-08-12 08:22] LABS: Anion Gap 10.7 mEq/L (5-15); Blood Urea Nitrogen 30 mg/dl (9-20); Calcium 9.9 mg/dl (8.4-10.2); Carbon Dioxide 27 mmol/L (22.0-30.0); Creatinine Clearance Estimated 24 mL/min (50-200); Estimated Glomerular Filt Rate 26 ml/min (>60); GFR (African American) 31 ML/MIN (>60); Glucose 84 mg/dl (74-100)
--- NOTE | 2021-08-12 09:12 | HMH.DCSUM ---
General - General Admission date:: 08/09/21 Discharge date: 08/12/21 HPI HPI: Mr. Tan is an 86-year-old male with a history of hypertension, hyperlipidemia, bipolar disorder, and dementia who was brought to [facility] emergency room by family after a fall at home. Family noted he was having more difficulty walking, was more confused, and had become incontinent of urine. Up until now he had been living alone with assistance of family who lives nearby although recently the family was actively seeking long-term care placement realizing he could no longer be alone at home. He was brought to the emergency room for further evaluation. In the emergency room CT of the cervical spine revealed no acute cervical spine fracture . CT of the head without contrast revealed No definite acute intracranial abnormality. X-ray of the pelvis revealed no acute abnormality. Laboratory data showed hypokalemia with a potassium of 2.7 and renal deficits with a BUN of 68, creatinine of 4.40 and GFR of 13. Troponin I was 0.05x3. TSH was normal at 2.07. Chest x-ray showed no acute cardiopulmonary disease. He received a liter of IV fluids and 40 mill equivalents of KCl p.o. He was then admitted for hydration with acute renal failure. Hospital Course Hospital Course: He was admitted for IV fluid hydration and monitoring of his renal function and electrolytes. He has been on diuretics at home and these were held. He initially was quite confused beyond his baseline and also somewhat agitated but after about 24 hours, this improved and since then he has been cooperative with his care although still confused. Appetite is slowly improving. He has been getting up to the bathroom with assistance. Renal function has steadily improved with BUN and creatinine down to 30 and 2.4 respectively. Baseline creatinine is between 1.5 and 2.0. His potassium is now normal at 3.7. Per family request, long-term care placement has been arranged and he has a bed available at [facility]. He will be discharged today. Creatinine is not yet at baseline but with his improved appetite and being off diuretics, anticipate this should continue to improve. Recommend repeating labs in 1 week. Objective Vital signs: Temp Pulse Resp BP Pulse Ox 98.4 F 72 17 124/69 93 L 08/12/21 04:00 08/12/21 04:00 08/12/21 04:00 08/12/21 04:00 08/12/21 04:00 no acute distress, cooperative - *Routine HEENT Exam Head: Present: normocephalic, atraumatic Eye: Present: EOMI. Absent: scleral injection ENT: Present: mucous membranes moist, oropharynx clear, other (Very hard of hearing) - *Routine Neck Exam Present: supple. Absent: carotid bruit, lymphadenopathy - *Routine Respiratory Exam Present: CTA bilaterally, rales, wheezes - *Routine Cardiovascular Exam Present: RRR - *Routine Abdominal Exam Present: soft. Absent: tenderness, distended, organomegaly - *Routine Extremities Exam Absent: edema - *Routine Skin Exam Comments: dermatitis of face - *Routine Neurological Exam Present: alert. Absent: oriented X3 Oriented to name only. No focal motor deficits. Results Labs on day of discharge: Labs from last 24 hours 08/12/21 08/09/21 06:14 00:15 Sodium 140 Potassium 3.7 Chloride 106 Carbon Dioxide 27 Anion Gap 10.7 BUN 30 H Creatinine 2.40 H Estimated Creat Clear 24 Estimated GFR 26 L Est GFR ( Amer) 31 L Glucose 84 Calcium 9.9 Free Valproic Acid 32.5 Preliminary micro results at discharge 08/09/21 00:15 Blood Culture - Preliminary Blood NO GROWTH AFTER 48 HOURS 08/09/21 00:15 Blood Culture - Preliminary Blood NO GROWTH AFTER 48 HOURS DS: Diagnosis - Discharge Diagnosis (1) MERE (acute kidney injury) Status: Acute (2) Altered mental status Status: Acute (3) Hypokalemia Status: Acute (4) Fall Status: Acute
[2021-08-12 09:49] LABS: Coronavirus 19, PCR Not Detected (NotDetected); Influenza A, PCR Not Detected (NotDetected); Influenza B, PCR Not Detected (NotDetected)
--- NOTE | 2021-08-12 11:00 | PC.NURSE ---
Called report to temi [place]
--- NOTE | 2021-08-14 14:30 | CARE MANAGER ---
Contacted patient's son Wilfred. States that patient is doing well, denies questions or concerns at this time. FELIX Bruno
== END 2021-08-12 12:43 | DRG 641 ==
LOC: ER 23:02 → 2ND 08-09 02:11
PROVIDERS: Nurse Practitioner Family; Admitting Provider Family Medicine; Emergency Provider Emergency Medicine; PCP Family Medicine; Visit Provider Family Medicine
DX: E87.6 Hypokalemia (principal); N17.9 Acute kidney failure, unspecified; E78.5 Hyperlipidemia, unspecified; I10 Essential (primary) hypertension; M19.90 Unspecified osteoarthritis, unspecified site; F31.9 Bipolar disorder, unspecified; F03.90 Unspecified dementia, unspecified severity, without behavioral disturbance, psychotic disturbance, mood disturbance, and anxiety; Z20.822 Contact with and (suspected) exposure to COVID-19
CPT/HCPCS: 36415; 70450; 71046; 72125; 72170; 80048; 80076; 80165; 81001; 82009; 82550; 83036; 83605; 83735; 84436; 84443; 84484; 85025; 85651; 86140; 87040; 93005; 97110; 97116; 97161; 97165; 97530; 97535; 99285; C9803; G0463; U0003; U0005

== ENCOUNTER → 2021-09-12 08:08 | Outpatient (POV) | payer MEDICARE, BC, SELFPAY | PROVIDERS: Visit Provider Dermatology | DX: Z00.00 Encounter for general adult medical examination without abnormal findings (principal) ==

== ENCOUNTER 2021-12-08 01:02 | Emergency (ER) | payer MEDICARE, BC, MEDICAID, SELFPAY ==
--- NOTE | 2021-12-08 01:05 | HMH.EDGENADL ---
Discharge Plan Disposition Patient Disposition: Home, Self-Care Condition: Good Prescriptions Prescriptions: No Action acetaminophen 325 mg capsule 325 mg PO Q6HP PRN (Reason: Mild Pain,Fever,Headache) divalproex 250 mg tablet,delayed release (DR/EC) 250 mg PO DAILY Qty: 30 0RF simvastatin 10 mg tablet 10 mg PO HS Qty: 30 0RF amlodipine 5 mg tablet 5 mg PO DAILY Qty: 30 0RF Rx Instructions: in evening sertraline 25 mg tablet 12.5 mg PO HS Qty: 30 0RF oxybutynin chloride 5 MG tablet 5 mg PO DAILY Qty: 30 0RF finasteride 5 MG tablet 5 mg PO DAILY Qty: 30 0RF sennosides [senna] 8.6 mg Tablet 8.6 mg PO DAILY trazodone 100 mg Tablet 100 mg PO HS polyethylene glycol 3350 [Miralax] 17 gram/dose Powder 17 g PO DAILY cholecalciferol (vitamin D3) [Vitamin D3] 50 mcg (2,000 unit) Capsule 50 mcg PO DAILY Gemtesa 75 mg Tablet 75 mg PO DAILY potassium chloride 20 MEQ tablet,ER particles/crystals 20 meq PO DAILY hydroxyzine pamoate 25 MG capsule 25 mg PO HS aripiprazole 10 MG tablet 15 mg PO DAILY Referrals Follow up/Referrals: Sunday Martinez MD [Physician] - See instructions (Please follow up for nasal bone fracture) Activity Restrictions/Add. Instructions Additional Instructions/Restrictions: Please treat patient for pain with ibuprofen and tylenol. Have patient follow up with ENT doctor in 7-10 days. No nose blowing. Clinical Impressions Clinical Impression: Fall, Dementia, Fracture of nasal bones Instructions Patient Instructions: How to Prevent Falls, DI for Facial Fracture Discharge ED Provider: Yanet Zelaya General Adult HPI General Chief complaint: Fall Stated complaint: Fall out of bed Time Seen by Provider: 12/08/21 01:06 Mode of Arrival: EMS Source of Information: EMS and Medical Record Limitations: Dementia History of Present Illness HPI narrative: 86yo M w/pmhx of dementia, seizure, HTN, HLD w/cc of fall and subsequent nasal injury. [facility] staff found patient in between beds, did not witness fall. Patient is unable to tell me what happened, states he must have rolled out of bed. He states his nose hurts; has been bleeding per report. He denies headache, neck pain, back pain, difficulty breathing, abdominal/pelvic pain, extremity pain. Per record review, patient is not on blood thinners. Patient was at baseline after being found down per [facility] staff/EMS report. Onset (ago): hour(s) Location: face Severity: mild Relieving factors: none Exacerbating factors: none Associated symptoms: denies other symptoms Treatments prior to arrival: none Related Data Home Medications Medication Instructions Recorded Confirmed acetaminophen 325 mg capsule 325 mg PO Q6HP PRN Mild 03/26/17 12/08/21 Pain,Fever,Headache aripiprazole 10 mg tablet 15 mg PO DAILY schizophrenia 12/08/21 12/08/21 cholecalciferol (vitamin D3) 50 50 mcg PO DAILY Supplement 12/08/21 12/08/21 mcg (2,000 unit) capsule (Vitamin D3) hydroxyzine pamoate 25 mg capsule 25 mg PO HS Anxiety 12/08/21 12/08/21 polyethylene glycol 3350 17 17 g PO DAILY constipation 12/08/21 12/08/21 gram/dose oral powder (Miralax) potassium chloride 20 mEq 20 meq PO DAILY Supplement 12/08/21 12/08/21 tablet,extended release(part/cryst) sennosides 8.6 mg tablet (senna) 8.6 mg PO DAILY constipation 12/08/21 12/08/21 trazodone 100 mg tablet 100 mg PO HS Insomnia 12/08/21 12/08/21 vibegron 75 mg tablet (Gemtesa) 75 mg PO DAILY overactive bladder 12/08/21 12/08/21 Previous Rx's Medication Instructions Recorded amlodipine 5 mg tablet 5 mg PO DAILY Hypertension #30 tabs 08/12/21 divalproex 250 mg tablet,delayed 250 mg PO DAILY Anxiety #30 tabs 08/12/21 release finasteride 5 mg tablet 5 mg PO DAILY fluid #30 tabs 08/12/21 oxybutynin chloride 5 mg tablet 5 mg PO DAILY BLADDER #30 tabs 08/12/21 sertraline 25 mg tablet 12.5 mg PO HS MOOD #
--- NOTE | 2021-12-08 01:10 | PC.NURSE ---
Dr. Paul at [facility]
[2021-12-08 01:12] VITALS: BP 155/72; PULSE 76; RESP 16; TEMP 36.6; O2SAT 98; BMI 27.1
--- NOTE | 2021-12-08 01:21 | XR_ITS ---
PROCEDURE INFORMATION: Exam: XR Chest Exam date and time: 12/08/2021 1:39 AM Age: 86 years old Clinical indication: Injury or trauma; Fall; Blunt trauma (contusions or hematomas); Additional info: Trauma/unwitnessed fall TECHNIQUE: Imaging protocol: Radiologic exam of the chest. Views: 1 view. COMPARISON: CR XR CHEST 2V 08/09/2021 12:06 AM FINDINGS: Lungs: Unremarkable. No consolidation. Pleural spaces: Unremarkable. No pleural effusion. No pneumothorax. Heart/Mediastinum: Unremarkable. No cardiomegaly. Bones/joints: Unremarkable. IMPRESSION: No acute cardiopulmonary process.
--- NOTE | 2021-12-08 01:21 | XR_ITS ---
PROCEDURE INFORMATION: Exam: XR Pelvis Exam date and time: 12/08/2021 1:39 AM Age: 86 years old Clinical indication: Injury or trauma; Fall; Blunt trauma (contusions or hematomas); Does not apply; Pelvic region; Additional info: Trauma/unwitnessed fall TECHNIQUE: Imaging protocol: Radiologic exam of the pelvis. Views: 1 or 2 view. COMPARISON: CR XR PELVIS 1-2V 08/09/2021 12:14 AM FINDINGS: Bones/joints: Unremarkable. No acute fracture. No lytic or blastic destructive changes to bone. Soft tissues: Unremarkable. IMPRESSION: No acute process. No fracture or dislocation.
--- NOTE | 2021-12-08 01:24 | CT_ITS ---
PROCEDURE INFORMATION: Exam: CT Head Without Contrast Exam date and time: 12/08/2021 2:03 AM Age: 86 years old Clinical indication: Injury or trauma; Fall; Additional info: Fall/facial pain TECHNIQUE: Imaging protocol: Computed tomography of the head without contrast. Radiation optimization: All CT scans at this facility use at least one of these dose optimization techniques: automated exposure control; mA and/or kV adjustment per patient size (includes targeted exams where dose is matched to clinical indication); or iterative reconstruction. COMPARISON: CT HEAD/BRAIN WO CON 08/09/2021 12:26 AM FINDINGS: Brain: There is diffuse cortical volume loss and hypoattenuation of the deep white matter. No evidence of acute intracranial hemorrhage. No acute cerebral edema, mass effect or shift. Cerebral ventricles: No ventriculomegaly. Paranasal sinuses: Visualized sinuses are unremarkable. No fluid levels. Mastoid air cells: Visualized mastoid air cells are well aerated. Bones/joints: Unremarkable. No acute fracture. Soft tissues: Unremarkable. IMPRESSION: No acute intracranial process. 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
--- NOTE | 2021-12-08 01:25 | CT_ITS ---
PROCEDURE INFORMATION: Exam: CT Maxillofacial Without Contrast Exam date and time: 12/08/2021 2:06 AM Age: 86 years old Clinical indication: Injury or trauma; Fall; Blunt trauma (contusions or hematomas); Additional info: Facial pain/trauma TECHNIQUE: Imaging protocol: Computed tomography of the of the face without contrast. Radiation optimization: All CT scans at this facility use at least one of these dose optimization techniques: automated exposure control; mA and/or kV adjustment per patient size (includes targeted exams where dose is matched to clinical indication); or iterative reconstruction. COMPARISON: CT HEAD/BRAIN WO CON 12/08/2021 2:[address] HEAD/BRAIN WO CON 08/09/2021 12:26 AM. FINDINGS: Orbital cavities: The palacio of the bilateral orbits are intact. The globes and additional orbital contents are unremarkable bilaterally. Bones/joints: There are comminuted left nasal bone fractures that appear acute compared to the 08/29/2021 prior. The visualized facial bone framework including the sphenoid wings, zygoma, maxilla, and mandibular arch are all intact. Paranasal sinuses: The palacio of the paranasal sinuses are intact. The paranasal sinuses are clear. No air-fluid levels. Soft tissues: There is paranasal soft tissue swelling. IMPRESSION: 1. There are comminuted acute left nasal bone fractures. 2. No additional acute process or trauma of the visualized facial bones and soft tissues.
--- NOTE | 2021-12-08 01:25 | CT_ITS ---
PROCEDURE INFORMATION: Exam: CT Cervical Spine Without Contrast Exam date and time: 12/08/2021 2:03 AM Age: 86 years old Clinical indication: Injury or trauma; Fall; Blunt trauma; Additional info: Unwitnessed fall/trauma TECHNIQUE: Imaging protocol: Computed tomography of the cervical spine without contrast. Radiation optimization: All CT scans at this facility use at least one of these dose optimization techniques: automated exposure control; mA and/or kV adjustment per patient size (includes targeted exams where dose is matched to clinical indication); or iterative reconstruction. COMPARISON: CT CERVICAL SPINE WO CON 08/09/2021 12:26 AM FINDINGS: Bones/joints: There is stable chronic fusion at C5-C6. No acute fracture or dislocation. There are multilevel degenerative disc changes. Lungs: The lung apices demonstrate no acute process. Soft tissues: Unremarkable. IMPRESSION: No acute fracture or dislocation. There is multiple degenerative disc disease.
--- NOTE | 2021-12-08 01:29 | PC.NURSE ---
RAD at for CXR
--- NOTE | 2021-12-08 01:38 | ECG_ITS ---
APPROVED REPORT Exam: Resting ECG HR:69 bpm ECG Measurements Heart Rate 69 AXES MI 180 P 58 QRSd 129 QRS 63 QT 442 T 53 QTc 461 Conclusion SINUS RHYTHM RIGHT BUNDLE BRANCH BLOCK [120+ ms QRS DURATION, UPRIGHT V1, 40+ ms S IN I/aVL/V4/V5/V6] ABNORMAL ECG UNCONFIRMED REPORT Electronically signed by : Sumeet Martins MD 12/09/2021 17:41:32
[2021-12-08 02:00] VITALS: BP 151/80; PULSE 70; O2SAT 97
[2021-12-08 02:09] LABS: Microscopic, Urine URINE MICROSCOPIC (MICROSCOPIC)
[2021-12-08 02:10] LABS: Basophils # 0.1 K/mm3 (0-0.2); Basophils % 0.9 % (0.1-2.0); Eosinophils # 0.2 K/mm3 (0.0-0.4); Hematocrit 38.8 % (42.0-52.0); Hemoglobin 12.9 g/dL (14.1-18.0); Lymphocytes # 1.3 K/mm3 (0.7-4.5); Lymphocytes % 18.6 % (10-50); Mean Corpuscular HGB Conc 33.4 g/dL (31.8-35.4); Mean Corpuscular Hemoglobin 31.8 pg (27.0-31.2); Mean Corpuscular Volume 95.2 fl (80-94); Mean Platelet Volume 7.9 fl (7.4-10.4); Monocytes # 0.5 K/mm3 (0.1-1.0); Neutrophils % 70.7 % (37.0-80.0); Platelet Count 223 K/mm3 (142-424); Red Blood Count 4.07 M/mm3 (4.60-6.20); Red Cell Distribution Width 14.2 % (11.5-17.5); White Blood Count 7.1 K/mm3 (4.8-10.8)
[2021-12-08 02:16] LABS: Lactic Acid 0.6 mmol/L (0.7-2.1)
[2021-12-08 02:17] LABS: Alanine Aminotransferase 31 U/L (12-78); Albumin Level 3.9 g/dl (3.5-5.0); Albumin/Globulin Ratio 1.3 (1.1-1.8); Alkaline Phosphatase 107 U/L (38-126); Anion Gap 13.2 mEq/L (5-15); Aspartate Amino Transferase 32 U/L (17-59); Blood Urea Nitrogen 33 mg/dl (9-20); Carbon Dioxide 24 mmol/L (22.0-30.0); Chloride 105 mmol/L (98-107); Creatinine Clearance Estimated 37 mL/min (50-200); Estimated Glomerular Filt Rate 34 ml/min (>60); GFR (African American) 41 ML/MIN (>60); Glucose 104 mg/dl (74-100); Potassium 4.2 mmoL/L (3.5-5.1); Sodium 138 mmol/L (136-145); Total Protein,Serum 6.9 g/dl (6.3-8.2)
[2021-12-08 02:18] LABS: Activated Partial Thrombo Time 25.6 seconds (22.8-30.6); INR 0.95 (0.9-1.1); Prothrombin Time 10.3 seconds (10.1-12.5)
[2021-12-08 02:28] LABS: Bilirubin,Total < 0.1 mg/dl (0.2-1.3)
[2021-12-08 02:29] LABS: Troponin I < 0.01 ng/ml (0.00-0.034)
[2021-12-08 02:30] VITALS: BP 150/80; PULSE 70; O2SAT 94
[2021-12-08 02:31] LABS: Appearance,Urine CLEAR (Clear); Bilirubin,Urine Negative (Negative); Blood, Urine 3+ (Negative); Color,Urine YELLOW (Yellow); Glucose,Urine (UA) Negative (Negative); Ketones,Urine Negative (Negative); Leukocyte Esterase,Urine TRACE (Negative); Nitrate,Urine Negative (Negative); Protein,Urine Negative (Negative); Urobilinogen,Urine 0.2 EU/dl (0.2)
--- NOTE | 2021-12-08 02:50 | PC.NURSE ---
Pt given crackers and brigette mist per request. No other needs or complaints at this time. Call light within reach.
[2021-12-08 03:03] LABS: Bacteria,Urine Trace /lpf
[2021-12-08 03:30] VITALS: BP 145/75; PULSE 68; RESP 16; TEMP 36.6; O2SAT 99
== END 2021-12-08 04:03 | disposition home or self-care (01) ==
PROVIDERS: Emergency Provider Emergency Medicine
DX: W19.XXXA Unspecified fall, initial encounter (principal); Z79.899 Other long term (current) drug therapy; S02.2XXA Fracture of nasal bones, initial encounter for closed fracture; F03.90 Unspecified dementia, unspecified severity, without behavioral disturbance, psychotic disturbance, mood disturbance, and anxiety; Z88.1 Allergy status to other antibiotic agents; Z88.2 Allergy status to sulfonamides; Z88.6 Allergy status to analgesic agent; Z88.8 Allergy status to other drugs, medicaments and biological substances; I10 Essential (primary) hypertension; E78.5 Hyperlipidemia, unspecified; F41.9 Anxiety disorder, unspecified; M06.9 Rheumatoid arthritis, unspecified; F31.9 Bipolar disorder, unspecified; M62.5A Muscle wasting and atrophy, not elsewhere classified, back
CPT/HCPCS: 70450; 70486; 71045; 72125; 72170; 80053; 81001; 83605; 84484; 85025; 85610; 85730; 93005; 99285